=== PATIENT | male | born 1970 | race Caucasian/White ===

== ENCOUNTER 2018-05-04 12:35 | Emergency (ER) | payer MEDICAID ==
[2018-05-04] MEDS: ACETAMINOPHEN 325 MG TAB PO (13:33)
[2018-05-04] MEDS: LIDOCAINE 1% (MDV) 20 ML INJ SC (13:34)
== END 2018-05-04 14:18 | disposition home or self-care (01) ==
LOC: FTE 12:35
DX: S61.412A Laceration without foreign body of left hand, initial encounter (principal); W54.0XXA Bitten by dog, initial encounter
CPT/HCPCS: 12002; 99283-25